=== PATIENT | male | born 1940 | race Caucasian/White ===

== ENCOUNTER → 2016-08-18 | Outpatient (CLI) | payer MEDICARE ==
[~2016-08-18] MED LIST: DULC100C PO; FINA5TAB2 PO; FOLI400T PO; LATA.005%O EACH EYE; LATA0.002 EACH EYE; MAGN400T2 PO; MAGNSOL2 PO; MIRA33504 PO; MULT1TAB85 PO; TAMS0.4C4 PO
[2016-08-18 09:43] LABS: MEAN CELL VOLUME 90.7 FL (80.0-100.0); MEAN CORPUSCULAR HEMOGLOBIN 30.9 PG (27.0-34.0); MEAN CORPUSCULAR HGB CONC 34.1 % (32.0-36.0); PLATELET COUNT 262 TH/MM3 (150-450); RED BLOOD COUNT 4.74 MIL/MM3 (4.50-5.90); REVIEW FLAG FINAL; WHITE BLOOD COUNT 6.4 TH/MM3 (4.0-11.0)
[2016-08-18 09:58] LABS: BICARBONATE 28.1 MEQ/L (21.0-32.0); POTASSIUM 4.5 MEQ/L (3.5-5.1)
--- NOTE | 2016-08-18 15:20 | EKG ---
Date Performed: 08/18/2016 Time Performed: 09:11:31 PTAGE: 75 years EKG: Sinus rhythm WITH FIRST DEGREE AV BLOCK BORDERLINE LEFT AXIS DEVIATION ABNORMAL ECG NO PREVIOUS TRACING DOCTOR: Art Wood Interpretating Date/Time 08/18/2016 15:18:22
== END ==
LOC: CPRE 08:49
PROVIDERS: ATTEND Plastic Surgery
DX: C44.319 Basal cell carcinoma of skin of other parts of face (principal); R94.31 Abnormal electrocardiogram [ECG] [EKG]
CPT/HCPCS: 36415; 80051; 85027; 93005

== ENCOUNTER → 2016-08-19 | Day surgery (SDC) | payer MEDICARE ==
--- NOTE | 2016-08-18 19:43 | MH ---
cc: NBA PENNINGTON M.D. 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 Patient was brought to me for excision and reconstruction. HISTORY This is a 75-year-old white male who recently was referred to me from the dermatology office. He had biopsies on multiple areas on his face on July 23, 2016. The skin on the left side nose ala is positive for melanoma in situ with biopsy positive for the melanoma on the borders. He also has a left cheek lesion biopsy that is nodular basal cell carcinoma and also a left side upper lip lesion that was diagnosed as basal cell nodular carcinoma as well. The patient underwent detailed explanation of the different types of skin cancers and general approach is to do excision. The melanoma was discussed in detail. His lesion is in situ and does not need any lymph node excision. The margins around the melanoma can be approximately between 5 to 10 millimeter range depending on the anatomic on the nose itself and the basal cell with a 6 millimeter margin should be adequate. The basal cell carcinoma can also be subjected to frozen section, at the same time the other surgeries have been continued. The defect on the nose will need to be reconstructed with the simplest technique being a full-thickness skin graft and also the possible options for the different rotation flaps either from forehead or the left cheek were pointed out. The dorsal nasal flap alone may or may not be sufficient for this type and size of defect. The patient is willing to go ahead with the full-thickness skin graft option. Again the melanoma being in situ, removal of cartilage is not indicated. The remaining areas can be directly closed or closed with an advancement local flap, etc. The patient understands the possibility that the skin graft may not take and further reconstructive option may need to be considered including a second skin graft. PAST MEDICAL HISTORY: Negative for any major medical problems. He does have occasional skipped heart beats which are asymptomatic and does not need any active treatment according to his medical numerical control operator. The patient is not diabetic. No coronary artery problems and no history of any chest pain or shortness of breath. No other chronic issues. No major surgeries. CURRENT MEDICATIONS Only vitamins. ALLERGIES: PENICILLIN SOCIAL HISTORY: Negative for smoking. Occasional social alcohol use. No drug abuse. No hepatitis or HIV risk factors. No history of any transfusions. PHYSICAL EXAMINATION: The patient is 6 feet tall and weight is 185 pounds. Examination shows a 75-year-old white male with stable vital signs. GENERAL: The patient is alert, cooperative, fully oriented. He is fully ambulant, emotionally stable. HEAD AND NECK: Clear sclerae. Pupils are equal, reactive to room light. Trachea is midline. No thyromegaly or gross masses noted in the neck. NECK: Neck movements are normal. CHEST: The chest has good expansion with normal breathing, normal heart sounds, normal breath sounds. ABDOMEN: Not examined. EXTREMITIES: Upper and lower extremities are grossly intact. There are scattered skin lesions which are not suspicious involving the head and neck, and on the extremities, mostly age related changes. The local examination of the three areas in question, the left side nose ala area has 8 to 9 millimeter biopsy with some degree of lesion seen towards the superior aspect. The excision will most likely involve the edge of the nostril and may result in asymmetrical reconstruction on the border of the nose. The area on the left cheek just outside the nasolabial fold still has a small visible lesion, biopsy site is healed. There is a similar lesion around the left upper lip as well. The cheek lesion now is the larger one of the two. No palpable lymph nodes under the submandibular area or the left parotid superficial parotid area. 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 PLAN: The plan is to excise all the areas. The melanoma will be sent for permanent section only. The basal cell carcinomas will be subjected to frozen section, local closure by full-thickness skin graft on the nose and direct or advancement closure on the cheek and the lip. signed, not fully reviewed Nba Pennington MD /HARMEET /6:55 PM /7:09 PM RITU
[~2016-08-19] VITALS: Ht 182.9 cm; Wt 84.4 kg
[~2016-08-19] MED LIST changes: +ACETAMINOPHEN/HYDROcodone 325 MG/7.5 MG TAB OG PRN; +ARTIFICIAL TEARS OPTH OINT 3.5 APPLIC/3.5 GM TUBO ONE; +BACITRACIN TOP OINT 15 GM TUBE ONE; +BUPIVACAINE/EPINEPHRINE 0.5% PF 30 ML VIAL ONE; +CLINDAMYCIN 600 MG/NS 100 ML IV SCH; +DO NOT ADM ANY ANTICOAGULANT DRUGS XX PRN; +FAMOTIDINE 20 MG/2 ML VIAL ONE; +HYDROmorphone HCL PF 1 MG/ML VIAL IV PRN; +INSULIN HUMAN REGULAR 1,000 UNITS/10 ML VIAL SQ PRN; +LACTATED RINGER'S 1000 ML IV SCH; -LATA.005%O EACH EYE; +LIDOCAINE 1%/EPINEPHrine 1:100,000 SOLN 30 ML VIAL ONE; +METOPROLOL TARTRATE 25 MG TAB PO PRN; +MIDAZOLAM HCL 2 MG/2 ML VIAL ONE; +MINERAL OIL 10 ML VIAL ONE; +NEOSTIGMINE 3 MG/3 ML SYR IV ONE; +ONDANSETRON HCL 4 MG/2 ML VIAL IV PUSH ONE; +PHENYLEPH/NS 1000 MCG/10 ML SYR IV ONE; +PROPOFOL 200 MG/20 ML AMP IV ONE; +SODIUM CHLORID 0.9% 500 ML IV SCH; +SODIUM CHLORIDE 0.9% INJ 100 ML ONE; +ePHEDrine/NS 25 MG/5 ML SYR IV ONE; +fentaNYL CITRATE 250 MCG/5 ML AMP ONE
[2016-08-19 09:35] VITALS: BP 135/80; PULSE 68; RESP 18; TEMP 98.1; O2SAT 98
[2016-08-19 12:46] VITALS: BP 121/69; PULSE 60; RESP 16; TEMP 98.2; O2SAT 99
--- NOTE | 2016-08-20 13:25 | MP ---
cc: ESTELLA PENNINGTON M.D. DATE OF SURGERY 08/19/2016 PREOPERATIVE DIAGNOSES 1. Biopsy-proven melanoma in situ left side nose. 2. Biopsy-proven basal cell carcinoma left cheek. 3. Biopsy-proven basal cell carcinoma left upper lip. POSTOPERATIVE DIAGNOSES 1. Biopsy-proven melanoma in situ left side nose. 2. Biopsy-proven basal cell carcinoma left cheek. 3. Biopsy-proven basal cell carcinoma left upper lip. SURGEON Dr. Pennington ANESTHESIA General. OPERATION 1. Excision left side nose ala melanoma in situ, approximately 3 cm defect, full-thickness skin graft from the left neck. 2. Excision left cheek basal cell carcinoma, frozen section and direct closure. 3. Excision basal cell carcinoma left upper lip, frozen section and direct closure. INDICATIONS This is a 75-year-old white male with the above-mentioned skin malignancies diagnosed with biopsy at his dermatology office. She was referred to id for further management. He underwent detailed explanation of the excision of the melanoma with between 5-10 mm margin and the basal cell with 4-6 mm margin on the short sides. The frozen section for the basal cell cancer was explained. The melanoma needs permanent section only. The general risks and complications were explained including the possibility of skin graft failure and possible need for future reconstruction that may be needed. He is willing to go ahead with the surgery. PROCEDURE The patient was brought to the operating room, was given supine position. Prep and drape was done. IV antibiotic had been given. The time-out was called and completed. The markings were performed on all the areas. Local anesthetic was injected and the lesions were excised down to the subcuticular tissue, suture marked superiorly. The two basal cells were sent for frozen section. The hemostasis was completed. A full-thickness skin graft was then harvested from the left posterior neck following the natural skin folds and it was defatted, adjusted for thickness to the defect on the nose and was sutured in place with 6-0 Prolene interrupted sutures. The donor site and the defects on the lip and the nose were directly closed. There was some distortion and flattening of the left cheek and change in the overall symmetry due to the [id number] excision; however, it was possible to maintain the angle of the lip without distortion by tilting the lower part of the excision vertical to the vermilion border. The frozen section report issued in the meantime indicated clear margins on both basal cell carcinomas. There was no clear identification of any residual tumor. All the areas were cleaned. A [id number] bolster dressing was applied for the nose, skin graft and the other areas were Steri-Stripped. The patient remained stable. Intraoperative blood loss less than 5-10 cc. No complications. signed, not fully reviewed MD VERONICA Mckeon/TIMUR /1:32 PM /1:06 PM RITU
== END | disposition home or self-care (01) ==
LOC: HSDC 08:38
PROVIDERS: ATTEND Plastic Surgery
DX: D03.39 Melanoma in situ of other parts of face (principal); C44.319 Basal cell carcinoma of skin of other parts of face; C44.01 Basal cell carcinoma of skin of lip
CPT/HCPCS: 00300; 11641; 11643; 15240; 88305; 88331; 88341; 88342; J2250; J2370; J2405; J2710; J3010; J7120

== ENCOUNTER 2016-09-08 05:38 | Emergency (ER) | payer MEDICARE ==
[~2016-09-08] VITALS: Ht 182.9 cm; Wt 85.0 kg
[~2016-09-08 05:38] MED LIST changes: -ACETAMINOPHEN/HYDROcodone 325 MG/7.5 MG TAB OG PRN; -ARTIFICIAL TEARS OPTH OINT 3.5 APPLIC/3.5 GM TUBO ONE; -BACITRACIN TOP OINT 15 GM TUBE ONE; -BUPIVACAINE/EPINEPHRINE 0.5% PF 30 ML VIAL ONE; -CLINDAMYCIN 600 MG/NS 100 ML IV SCH; -DO NOT ADM ANY ANTICOAGULANT DRUGS XX PRN; -DULC100C PO; -FAMOTIDINE 20 MG/2 ML VIAL ONE; -FOLI400T PO; -HYDROmorphone HCL PF 1 MG/ML VIAL IV PRN; -INSULIN HUMAN REGULAR 1,000 UNITS/10 ML VIAL SQ PRN; -LACTATED RINGER'S 1000 ML IV SCH; -LIDOCAINE 1%/EPINEPHrine 1:100,000 SOLN 30 ML VIAL ONE; -MAGN400T2 PO; -MAGNSOL2 PO; -METOPROLOL TARTRATE 25 MG TAB PO PRN; -MIDAZOLAM HCL 2 MG/2 ML VIAL ONE; -MINERAL OIL 10 ML VIAL ONE; -MIRA33504 PO; -MULT1TAB85 PO; -NEOSTIGMINE 3 MG/3 ML SYR IV ONE; -ONDANSETRON HCL 4 MG/2 ML VIAL IV PUSH ONE; -PHENYLEPH/NS 1000 MCG/10 ML SYR IV ONE; -PROPOFOL 200 MG/20 ML AMP IV ONE; -SODIUM CHLORID 0.9% 500 ML IV SCH; -SODIUM CHLORIDE 0.9% INJ 100 ML ONE; -ePHEDrine/NS 25 MG/5 ML SYR IV ONE; -fentaNYL CITRATE 250 MCG/5 ML AMP ONE
[2016-09-08 05:39] VITALS: BP 160/83; PULSE 76; RESP 18; TEMP 97.9; O2SAT 100
[2016-09-08] MEDS ORDERED: MAGN400T2 PO (05:43)
[2016-09-08] MEDS ORDERED: FOLI400T PO (05:43)
[2016-09-08] MEDS ORDERED: DULC100C PO (05:44)
[2016-09-08] MEDS ORDERED: MULT1TAB85 PO (05:44)
[2016-09-08] MEDS ORDERED: SODIUM CHLORID 0.9% 500 ML INJ 500 ML IV ONE (05:45)
[2016-09-08 05:48] VITALS: O2SAT 99
--- NOTE | 2016-09-08 06:06 | PD ---
HPI Chief Complaint: Syncope/Near-Syncope Time Seen by Provider: 05:44 Travel History International Travel<30 days: No Contact w/Intl Traveler<30days: No Traveled to known affect area: No History of Present Illness HPI The patient is a 75 year old male who presents to the [facility] emergency department with a history of reportedly abdominal pain that began and awoke him from sleep at 3:30 AM. The patient reports that he has a history of constipation, however it is been worse over the last week. He reports that on Wednesday moved his bowels and it was a small bowel movement that was hard. He reports that yesterday he took a Dulcolax stool softener. He reports his recent history has been complicated by approximately 3 weeks ago having a melanoma removed from his face. He reports that he was given pain medication prescription, however he is only taken 2 pills due to his history of constipation. He denies having any vomiting. He reports that he was sitting on the toilet prior to arrival with lower abdominal pain that was sharp and cramping in character. He then began to have diaphoresis and a sensation of lightheadedness. Ambulance services were then called. The patient reports that the symptoms have completely resolved. He denies having any chest pain or shortness of breath. The patient denies any recent fevers, cough, congestion, neck pain, diarrhea, new urinary symptoms, or neurologic symptoms. [facility] Past Medical History Narrative Medical The patient's past medical history is significant for a melanoma resection from his nose, history of constipation, history of benign prostatic hypertrophy, history of glaucoma, history of a cardiac arrhythmia, acid reflux. Heart Rhythm Problems: Yes (palpitations occasionally) Cardiac Catheterization: No Cardiovascular Problems: Yes (afib) High Cholesterol: No Congestive Heart Failure: No Diabetes: No Diminished Hearing: No Endocrine: No Gastrointestinal Disorders: Yes (gerd) Glaucoma: Yes (early) Genitourinary: Yes Hepatitis: No Hiatal Hernia: No Immune Disorder: No Musculoskeletal: No Neurologic: No Psychiatric: No Reproductive: No Respiratory: No Immunizations Current: Yes Thyroid Disease: No Tetanus Vaccination: < 5 Years Past Surgical History Narrative Surgical The patient's past surgical history is significant for a right inguinal hernia repair, mastectomy, colonoscopy last done 2 months ago that was reportedly unremarkable, melanoma removal from his face. Abdominal Surgery: Yes (hernia) AICD: No Coronary Artery Bypass Graft: No Joint Replacement: No Oral Surgery: Yes (mouth surgeries) Pacemaker: No Other Surgery: Yes (colonscopy 2 months ago ) Family History Family Myocardial Infarction: Yes (BROTHER) Social History Alcohol Use: Yes (social) Tobacco Use: No Substance Use: No Allergies-Medications (Allergen,Severity, Reaction): Coded Allergies: Penicillin (Verified Allergy, Severe, Rash, 09/08/16) Reported Meds & Prescriptions Reported Meds & Active Scripts Active Miralax Powder (Polyethylene Glycol 3350 Powder) 17 Gm Powd 17 Gm PO DAILY Mix and dissolve one measuring cap-ful (17 grams) in water or juice. Magnesium Citrate Liq (Magnesium Citrate) 300 Ml Liq 300 Ml PO DIRECTED Reported Dulcolax Stool Softener (Docusate Sodium) 100 Mg Cap 100 Mg PO BID Multivitamin Men (Multiple Vitamins W/ Minerals) 1 Tab Tab 1 Tab PO DAILY Magnesium Oxide 400 Mg Tab 400 Mg PO DIRECTED Folic Acid 400 Mcg Tab 400 Mcg PO DAILY Tamsulosin (Tamsulosin HCl) 0.4 Mg Cap 0.4 Mg PO HS Finasteride 5 Mg Tab 5 Mg PO DAILY Do not crush. Latanoprost Opth Drops (Latanoprost) 0.005% Drops 1 Drop EACH EYE HS Refrigerate until opened. Review of Systems Except as stated in HPI: all other systems reviewed are Neg General / Constitutional: No: Fever Eyes: No: Visual changes HENT: Positive: Lightheadedness, No: Headaches, Neck Pain Cardiovascular: Positive: Diaphoresis, No: Chest Pain or Discomfort, Dyspnea on exertion Respiratory: No: Cough, Shortness of Breath Gastrointestinal: Positive: Abdominal Pain, Constipation, Changes in Bowel Habits, No: Nausea, Vomiting, Diarrhea, Hematemesis, Hematochezia, Indigestion , Loss of Appetite Genitourinary: No: Dysuria, Flank Pain Musculoskeletal: No: Pain Skin: No Rash Neurologic: Positive: Dizziness, No: Weakness, Focal Abnormalities, Change in Mentation, Slurred Speech, Sensory Disturbance Psychiatric: No: Depression Endocrine: No: Polydipsia Hematologic/Lymphatic: No: Easy Bruising Physical Exam Narrative General: The patient is a well-developed well-nourished male in no acute distress. Head and Neck exam: Head is normocephalic atraumatic. Eyes: EOMI, pupils are equal round and reactive to light. Nose: Midline septum with pink mucous membranes Mouth: Dentition unremarkable. Moist mucus membranes. Posterior oropharynx is not erythematous. No tonsillar hypertrophy. Uvula midline. Airway patent. Neck: No palpable lymphadenopathy. No nuchal rigidity. No thyromegaly. Cardiovascular: Regular rate and rhythm without murmurs, gallops, or rubs. No pulse deficit to the extremities on simultaneous auscultation and palpation of his radial artery. Lungs: Clear to auscultation bilaterally. No wheezes, rhonchi, or rales. Abdomen: Soft, without tenderness to palpation in all 4 quadrants of the abdomen. No guarding, rebound, or rigidity. Normal bowel sounds are audible. No tenderness on palpation of McBurney's point. Negative Fortune's sign. The patient reports that the abdominal pain has completely resolved prior to arrival. Extremities: No clubbing, cyanosis, or edema. 2+ pulses in all 4 extremities. No calf tenderness on palpation. Back: No spinous process tenderness to palpation. No costovertebral angle tenderness to palpation. Neurologic Exam: Grossly nonfocal. Skin Exam: No rash noted. Intact skin that is warm and dry. RECTAL EXAM: No hemorrhoids or masses are noted. No evidence of anal fissure. The patient has a significant amount of stool present in the rectal vault. Some of this was easily removed on exam. Stool is brown in color. Hemoccult negative. Data Data Last Documented VS Vital Signs Date Time Temp Pulse Resp B/P Pulse Ox O2 Delivery O2 Flow Rate FiO2 09/08/16 12:24 70 18 129/91 98 09/08/16 07:09 Room Air 09/08/16 05:39 97.9 Orders Electrocardiogram (09/08/16 05:44) Complete Blood Count With Diff (09/08/16 05:44) Comprehensive Metabolic Panel (09/08/16 05:44) Ckmb (Isoenzyme) Profile (09/08/16 05:44) Troponin I (09/08/16 05:44) B-Type Natriuretic Peptide (09/08/16 05:44) Lipase (09/08/16 05:44) Chest, Single Ap (09/08/16 05:44) Abdomen, Flat & Upright (09/08/16 05:44) Iv Access Insert/Monitor (09/08/16 05:44) Ecg Monitoring (09/08/16 05:44) Oximetry (09/08/16 05:44) Sodium Chlorid 0.9% 500 Ml Inj (Ns 500 M (09/08/16 05:45) Orthostatic Vital Signs (09/08/16 06:06) Ct Abd/Pel W Iv Contrast(Rout) (09/08/16 06:37) Iohexol 350 Inj (Omnipaque 350 Inj) (09/08/16 07:26) Glycerin Adult Supp (Glycerin Adult Supp (09/08/16 07:45) Magnesium Citrate Liq (Citroma Liq) (09/08/16 07:45) Labs Laboratory Tests Test 09/08/16 05:45 White Blood Count 7.1 TH/MM3 Red Blood Count 4.47 MIL/MM3 Hemoglobin 13.7 GM/DL Hematocrit 40.7 % Mean Corpuscular Volume 90.9 FL Mean Corpuscular Hemoglobin 30.6 PG Mean Corpuscular Hemoglobin 33.7 % Concent Red Cell Distribution Width 12.7 % Platelet Count 235 TH/MM3 Mean Platelet Volume 8.1 FL Neutrophils (%) (Auto) 73.8 % Lymphocytes (%) (Auto) 18.0 % Monocytes (%) (Auto) 5.0 % Eosinophils (%) (Auto) 2.4 % Basophils (%) (Auto) 0.8 % Neutrophils # (Auto) 5.3 TH/MM3 Lymphocytes # (Auto) 1.3 TH/MM3 Monocytes # (Auto) 0.4 TH/MM3 Eosinophils # (Auto) 0.2 TH/MM3 Basophils # (Auto) 0.1 TH/MM3 CBC Comment DIFF FINAL Differential Comment Sodium Level 141 MEQ/L Potassium Level 3.7 MEQ/L Chloride Level 106 MEQ/L Carbon Dioxide Level 26.1 MEQ/L Anion Gap 9 MEQ/L Blood Urea Nitrogen 22 MG/DL Creatinine 1.15 MG/DL Estimat Glomerular Filtration 62 ML/MIN Rate Random Glucose 130 MG/DL Calcium Level 8.6 MG/DL Total Bilirubin 0.4 MG/DL Aspartate Amino Transf 13 U/L (AST/SGOT) Alanine Aminotransferase 22 U/L (ALT/SGPT) Alkaline Phosphatase 64 U/L Total Creatine Kinase 77 U/L Troponin I LESS THAN 0.02 NG/ML B-Type Natriuretic Peptide 23 PG/ML Total Protein 6.7 GM/DL Albumin 3.8 GM/DL Lipase 136 U/L MDM Medical Decision Making Medical Screen Exam Complete: Yes Emergency Medical Condition: Yes Medical Record Reviewed: Yes Interpretation(s) Last Impressions Abdomen/Pelvis CT 09/08/1637 Signed Impressions: Service Date/Time: Thursday, September 08, 2016 07:12 - CONCLUSION: Extensive amount of stool particularly in the rectum, otherwise unremarkable. Maame Quinones MD Chest X-Ray 09/08/1644 Signed Impressions: Service Date/Time: Thursday, September 08, 2016 06:04 - CONCLUSION: 1. No focal consolidation or effusion. No pneumothorax. Joel Felton MD Abdomen X-Ray 09/08/16543 Signed Impressions: Service Date/Time: Thursday, September 08, 2016 06:06 - CONCLUSION: 1. Mild constipation. Mild scoliosis. No obstruction or free air. Joel Felton MD Differential Diagnosis Vasovagal near syncope, versus cardiac arrhythmia, versus acute coronary syndrome, versus bowel obstruction, versus constipation, versus orthostasis Narrative Course During the course of the patients emergency department visit, the patients history, examination, and differential diagnosis were reviewed with the patient. The patient had IV access obtained and blood work sent for analysis. The patient was placed on a school bus monitor with oximetry and blood pressure monitoring. An EKG was done on arrival. The patient's EKG shows a sinus rhythm heart rate of 62, borderline left axis deviation, no acute ST segment elevation, T waves are inverted in lead 3, V1. A chest x-ray has been ordered. An abdominal flat and upright x-ray has been ordered. The patient was provided normal saline a 500 mL bolus 1. The patients laboratory studies were reviewed and remarkable for a CBC with a right count of 7.1, hemoglobin 13.7, platelets 235 with 73.8 neutrophils, CMP is remarkable for a BUN of 22, GFR 62, glucose 1:30, AST 13, initial set of cardiac enzymes are negative, BNP is 23, lipase 136. Radiology studies were reviewed and remarkable for a chest x-ray that shows no focal consolidation or effusion, no pneumothorax. Abdominal flat and upright reveals mild constipation, mild scoliosis, no obstruction or free air. The patient's case was checked out to the oncoming emergency physician to disposition based on the conclusion of the patient's workup. Diagnosis Primary Impression: Constipation Qualified Code: K59.00 - Constipation, unspecified constipation type Additional Impression: Vasovagal near syncope Scripts Polyethylene Glycol 3350 Powder (Miralax Powder)17 Gm Powd17 Gm PO DAILY #1 BOTTLE Mix and dissolve one measuring cap-ful (17 grams) in water or juice. Prov:Leonard Springer MD 09/08/16 Magnesium Citrate Liq 300 Ml [id number] Ml PO DIRECTED #1 BOTTLE Prov:Leonard Springer MD 09/08/16 Genevieve Lorenzo MD Sep 08, 2016 06:06
[2016-09-08 06:10] VITALS: BP_SYST 126; BP_SYST 138; BP_DIAS 71; BP_DIAS 78; BP_DIAS 84; RESP 16; RESP 17
[2016-09-08 06:16] LABS: AUTOMATED NEUTROPHIL # 5.3 TH/MM3 (1.8-7.7); BASOPHIL # 0.1 TH/MM3 (0-0.2); BASOPHIL % 0.8 % (0.0-2.0); EOSINOPHIL # 0.2 TH/MM3 (0-0.4); EOSINOPHIL % 2.4 % (0.0-4.0); HEMATOCRIT 40.7 % (39.0-51.0); HEMO FLAGS DIFF FINAL; LYMPHOCYTE # 1.3 TH/MM3 (1.0-4.8); MEAN CELL VOLUME 90.9 FL (80.0-100.0); MEAN CORPUSCULAR HEMOGLOBIN 30.6 PG (27.0-34.0); MEAN CORPUSCULAR HGB CONC 33.7 % (32.0-36.0); NEUT % 73.8 % (16.0-70.0); PLATELET COUNT 235 TH/MM3 (150-450); RED BLOOD COUNT 4.47 MIL/MM3 (4.50-5.90); RED CELL DISTRIBUTION WIDTH 12.7 % (11.6-17.2); WHITE BLOOD COUNT 7.1 TH/MM3 (4.0-11.0)
[2016-09-08 06:41] LABS: ALT (GPT) 22 U/L (12-78); ANION GAP 9 MEQ/L (5-15); AST (GOT) 13 U/L (15-37); BICARBONATE 26.1 MEQ/L (21.0-32.0); BLOOD UREA NITROGEN 22 MG/DL (7-18); CHLORIDE 106 MEQ/L (98-107); GLOMERULAR FILTRATION RATE 62 ML/MIN (>89); POTASSIUM 3.7 MEQ/L (3.5-5.1); SODIUM (NA) 141 MEQ/L (136-145)
--- NOTE | 2016-09-08 06:44 | RADRPT ---
EXAM DATE/TIME: 09/08/2016 06:04 [facility] COMPARISON: CHEST SINGLE AP, August 04, 2014, 20:36. INDICATIONS : Cough. MEDICAL HISTORY : None. SURGICAL HISTORY : None. ENCOUNTER: Initial ACUITY: 1 day PAIN SCORE: 0/10 LOCATION: Bilateral chest FINDINGS: A single view of the chest demonstrates the lungs to be symmetrically aerated without evidence of mas s, infiltrate or effusion. The cardiomediastinal contours are unremarkable. Osseous structures are intact. CONCLUSION: 1. No focal consolidation or effusion. No pneumothorax. Joel Felton MD on September 08, 2016 at 6:41 Board Certified Radiologist. This report was verified electronically.
[2016-09-08 06:46] LABS: ALKALINE PHOSPHATASE 64 U/L (45-117); TOTAL BILIRUBIN ADULT 0.4 MG/DL (0.2-1.0)
--- NOTE | 2016-09-08 06:47 | RADRPT ---
EXAM DATE/TIME: 09/08/2016 06:06 [facility] COMPARISON: No previous studies available for comparison. INDICATIONS : Abdominal discomfort. MEDICAL HISTORY : None. SURGICAL HISTORY : None. ENCOUNTER: Initial ACUITY: 2 days PAIN SCORE: 8/10 LOCATION: abdomen. FINDINGS: Supine and upright views of the abdomen were performed. The abdominal bowel gas pattern is normal. There is mild constipation. No bowel obstruction. No free air. There is a mild thoracolumbar scoliosi s. CONCLUSION: 1. Mild constipation. Mild scoliosis. No obstruction or free air. Joel Felton MD on September 08, 2016 at 6:43 Board Certified Radiologist. This report was verified electronically.
[2016-09-08 06:53] LABS: CREATINE KINASE 77 U/L (39-308)
[2016-09-08 07:09] VITALS: BP 154/80; PULSE 70; RESP 18; O2SAT 100
[2016-09-08] MEDS ORDERED: IOHEXOL 350 MG/ML 10 ML VIAL (for RAD DIAG) IV ONE (07:26)
--- NOTE | 2016-09-08 07:31 | PD ---
Data Data Last Documented VS Vital Signs Date Time Temp Pulse Resp B/P Pulse Ox O2 Delivery O2 Flow Rate FiO2 09/08/16 07:09 70 18 154/80 100 Room Air 09/08/16 05:39 97.9 Orders Electrocardiogram (09/08/16 05:44) Complete Blood Count With Diff (09/08/16 05:44) Comprehensive Metabolic Panel (09/08/16 05:44) Ckmb (Isoenzyme) Profile (09/08/16 05:44) Troponin I (09/08/16 05:44) B-Type Natriuretic Peptide (09/08/16 05:44) Lipase (09/08/16 05:44) Urinalysis - C+S If Indicated (09/08/16 05:44) Chest, Single Ap (09/08/16 05:44) Abdomen, Flat & Upright (09/08/16 05:44) Iv Access Insert/Monitor (09/08/16 05:44) Ecg Monitoring (09/08/16 05:44) Oximetry (09/08/16 05:44) Sodium Chlorid 0.9% 500 Ml Inj (Ns 500 M (09/08/16 05:45) Orthostatic Vital Signs (09/08/16 06:06) Ct Abd/Pel W Iv Contrast(Rout) (09/08/16 06:37) Iohexol 350 Inj (Omnipaque 350 Inj) (09/08/16 07:26) Glycerin Adult Supp (Glycerin Adult Supp (09/08/16 07:45) Magnesium Citrate Liq (Citroma Liq) (09/08/16 07:45) Labs Laboratory Tests Test 09/08/16 05:45 White Blood Count 7.1 TH/MM3 Red Blood Count 4.47 MIL/MM3 Hemoglobin 13.7 GM/DL Hematocrit 40.7 % Mean Corpuscular Volume 90.9 FL Mean Corpuscular Hemoglobin 30.6 PG Mean Corpuscular Hemoglobin 33.7 % Concent Red Cell Distribution Width 12.7 % Platelet Count 235 TH/MM3 Mean Platelet Volume 8.1 FL Neutrophils (%) (Auto) 73.8 % Lymphocytes (%) (Auto) 18.0 % Monocytes (%) (Auto) 5.0 % Eosinophils (%) (Auto) 2.4 % Basophils (%) (Auto) 0.8 % Neutrophils # (Auto) 5.3 TH/MM3 Lymphocytes # (Auto) 1.3 TH/MM3 Monocytes # (Auto) 0.4 TH/MM3 Eosinophils # (Auto) 0.2 TH/MM3 Basophils # (Auto) 0.1 TH/MM3 CBC Comment DIFF FINAL Differential Comment Sodium Level 141 MEQ/L Potassium Level 3.7 MEQ/L Chloride Level 106 MEQ/L Carbon Dioxide Level 26.1 MEQ/L Anion Gap 9 MEQ/L Blood Urea Nitrogen 22 MG/DL Creatinine 1.15 MG/DL Estimat Glomerular Filtration 62 ML/MIN Rate Random Glucose 130 MG/DL Calcium Level 8.6 MG/DL Total Bilirubin 0.4 MG/DL Aspartate Amino Transf 13 U/L (AST/SGOT) Alanine Aminotransferase 22 U/L (ALT/SGPT) Alkaline Phosphatase 64 U/L Total Creatine Kinase 77 U/L Troponin I LESS THAN 0.02 NG/ML B-Type Natriuretic Peptide 23 PG/ML Total Protein 6.7 GM/DL Albumin 3.8 GM/DL Lipase 136 U/L MDM Supervised Visit with SANDRA: No Narrative Course Assume care of patient from Dr. Lorenzo. 75-year-old man with a history of constipation, BPH, glaucoma, acid reflux, cardiac arrhythmias, and recent melanoma resection presents for worsening constipation symptoms and abdominal pain that woke him up from sleep at 3:30 AM associated with the tonsil to vasovagal syncopal episode while on the commode. Dr. Lorenzo disimpacted him. X-ray showed moderate constipation and he has a CT scan pending. Labs are unremarkable. Symptoms likely related to constipation vasovagal episode. CT shows extensive stool throughout the colon particularly in the rectum, treated with glycerin suppository, magnesium citrate, MiraLAX, outpatient follow-up. Diagnosis Primary Impression: Constipation Qualified Code: K59.00 - Constipation, unspecified constipation type Additional Impression: Vasovagal near syncope Additional Instruction: If you've not had a substantial bowel movement by tomorrow take another dose of magnesium citrate. Start MiraLAX daily and titrate to regular bowel movements. Follow up with her primary doctor in next 2-4 days. Drink plenty of water. Return to the emergency department for any worsening abdominal pain, recurrent fainting spells, or any other new or worsening symptoms. Med/Other Pt SpecificInfo: Prescription(s) given Scripts Polyethylene Glycol 3350 Powder (Miralax Powder)17 Gm Powd17 Gm PO DAILY #1 BOTTLE Mix and dissolve one measuring cap-ful (17 grams) in water or juice. Prov:Leonard Springer MD 09/08/16 Magnesium Citrate Liq 300 Ml Oak744 Ml PO DIRECTED #1 BOTTLE Prov:Leonard Springer MD 09/08/16 Disposition: 01 DISCHARGE HOME Condition: Stable Leonard Springer MD Sep 08, 2016 07:31
--- NOTE | 2016-09-08 07:36 | RADRPT ---
EXAM DATE/TIME: 09/08/2016 07:12 [place] COMPARISON: No previous studies available for comparison. INDICATIONS : Lower abdominal pain. Episode of diaphoresis. Constipation x 1 week. IV CONTRAST: 85 cc Omnipaque 350 (iohexol) IV ORAL CONTRAST: No oral contrast ingested. RADIATION DOSE: 9.96 CTDIvol (mGy) MEDICAL HISTORY : None SURGICAL HISTORY : Inguinal hernia repair. ENCOUNTER: Initial ACUITY: 1 week PAIN SCALE: 1/10 LOCATION: Bilateral lower quadrant TECHNIQUE: Volumetric scanning of the abdomen and pelvis was performed. Using automated exposure control and ad justment of the mA and/or kV according to patient size, radiation dose was kept as low as reasonably achievable to obtain optimal diagnostic quality images. FINDINGS: CT Abdomen: The liver, spleen, pancreas, left kidney, adrenals are unremarkable. There is no evidence for any appreciable pathological adenopathy, free fluid, or bowel obstruction. There may be a small sliding hiatal hernia. There is a tiny 3-4 mm pleural-based nodule in the right middle lobe laterall y most likely benign. There is either an old fracture of L1 transverse process on the right are not f used on a congenital basis. There are 2 cysts in the right kidney the larger one measures 2.7 cm in s ize. CT pelvis: There is no evidence for mass, abscess formation, or any significant adenopathy within the pelvis. The prostate gland is inhomogeneous and measures 3.8 x 5.1 cm in AP and transverse diameters and nonspecific. There is extensive amount of stool throughout the colon and rectum. CONCLUSION: Extensive amount of stool particularly in the rectum, otherwise unremarkable. Maame Quinones MD on September 08, 2016 at 7:29 Board Certified Radiologist. This report was verified electronically.
[2016-09-08] MEDS ORDERED: MAGNSOL2 PO (07:44)
[2016-09-08] MEDS ORDERED: MIRA33504 PO (07:44)
[2016-09-08] MEDS ORDERED: MAGNESIUM CITRATE SOLN 300 ML BTL PO ONE (07:45)
[2016-09-08] MEDS ORDERED: GLYCERIN ADULT 2 GM SUPP RECTAL ONE (07:45)
[2016-09-08 12:24] VITALS: BP 129/91
--- NOTE | 2016-09-08 21:58 | EKG ---
Date Performed: 09/08/2016 Time Performed: 05:46:33 PTAGE: 75 years EKG: Sinus rhythm WITH FIRST DEGREE AV BLOCK BORDERLINE LEFT AXIS DEVIATION Since previous tracing, no significant ernestina nge noted ABNORMAL ECG PREVIOUS TRACING : 08/18/2016 09.11 DOCTOR: Annabelle Navarro Interpretating Date/Time 09/08/2016 21:57:43
== END 2016-09-08 11:45 | disposition home or self-care (01) ==
LOC: NEPC 05:38
DX: K59.00 Constipation, unspecified (principal); R55 Syncope and collapse; I48.91 Unspecified atrial fibrillation; R94.31 Abnormal electrocardiogram [ECG] [EKG]
CPT/HCPCS: 71010; 74020; 74177; 80053; 82550; 83690; 83880; 84484; 85025; 93005; 99285; J7040; Q9967

== ENCOUNTER 2017-09-25 09:10 | Emergency (ER) | payer MEDICARE ==
[~2017-09-25] VITALS: Ht 182.9 cm; Wt 86.0 kg
[~2017-09-25 09:10] MED LIST changes: +DULC100C PO; +FOLI400T PO; +MAGN400T2 PO; +MAGNSOL2 PO; +MIRA33504 PO; +MULT1TAB85 PO
[2017-09-25 09:16] VITALS: BP 103/63; PULSE 96; RESP 16; TEMP 97.8; O2SAT 98
[2017-09-25] MEDS ORDERED: FINA5TAB2 (09:25)
--- NOTE | 2017-09-25 10:24 | PD ---
HPI Chief Complaint: Headache Time Seen by Provider: 10:05 Travel History International Travel<30 days: No Contact w/Intl Traveler<30days: No Traveled to known affect area: No History of Present Illness HPI This patient complains of headache and diffuse body aches. Duration is 2 days. Severity is moderate. His headache was severe earlier but at this time has mostly resolved and he rates it at this time as a 2 out of 10. No injury. Takes no blood thinners. He did take a temperature yesterday that was 100.4. No productive cough or urinary complaints. No vomiting or diarrhea. No alleviating factors. no exacerbating factors. He has had some nasal and facial congestion. PFSH Past Medical History Heart Rhythm Problems: Yes (palpitations occasionally) Cardiac Catheterization: No Cardiovascular Problems: Yes (afib) High Cholesterol: No Congestive Heart Failure: No Diabetes: No Diminished Hearing: No Endocrine: No Gastrointestinal Disorders: Yes (gerd) Glaucoma: Yes (early) Genitourinary: Yes Hepatitis: No Hiatal Hernia: No Heparin Induced Thrombocytopen: No Hypertension: No Immune Disorder: No Medical other: No Musculoskeletal: No Neurologic: No Psychiatric: No Reproductive: No Respiratory: No Immunizations Current: Yes Thyroid Disease: No Past Surgical History Abdominal Surgery: Yes (hernia) AICD: No Coronary Artery Bypass Graft: No Joint Replacement: No Oral Surgery: Yes (mouth surgeries) Pacemaker: No Other Surgery: Yes (colonscopy 2 months ago ) Family History Family Myocardial Infarction: Yes (BROTHER) Social History Alcohol Use: Yes (social) Tobacco Use: No Substance Use: No Allergies-Medications (Allergen,Severity, Reaction): Coded Allergies: penicillin G (Unverified Allergy, Severe, Rash, 09/25/17) Reported Meds & Prescriptions Reported Meds & Active Scripts Active Reported Finasteride 5 Mg Tab 5 Mg DAILY Do not crush. Magnesium Oxide 400 Mg Tab 400 Mg PO DIRECTED Folic Acid 400 Mcg Tab 400 Mcg PO DAILY Tamsulosin (Tamsulosin HCl) 0.4 Mg Cap 0.4 Mg PO HS Latanoprost Opth Drops (Latanoprost) 0.005% Drops 1 Drop EACH EYE HS Refrigerate until opened. Review of Systems General / Constitutional: No: Fever Eyes: No: Visual changes HENT: Positive: Headaches, Rhinorrhea, Congestion Cardiovascular: No: Chest Pain or Discomfort Respiratory: No: Shortness of Breath Gastrointestinal: No: Abdominal Pain Genitourinary: No: Dysuria Musculoskeletal: Positive: Myalgias, No: Pain Skin: No Rash Neurologic: Positive: Headache, No: Weakness Psychiatric: No: Depression Endocrine: No: Polydipsia Hematologic/Lymphatic: No: Easy Bruising Physical Exam Narrative GENERAL: Well-nourished, well-developed patient in no apparent distress. SKIN: Focused skin assessment reveals no rash and nodules. Skin is Warm and dry. HEAD: Atraumatic. Normocephalic. EYES: Pupils equal and round. No scleral icterus. No injection or drainage. ENT: No nasal bleeding or discharge. Mucous membranes pink and moist. NECK: Trachea midline. No JVD. Supple with full range of motion. No meningeal signs CARDIOVASCULAR: Regular rate and rhythm. No murmur appreciated. RESPIRATORY: No accessory muscle use. Clear to auscultation. Breath sounds equal bilaterally. GASTROINTESTINAL: Abdomen soft, non-tender, nondistended. Hepatic and splenic margins not palpable. MUSCULOSKELETAL: No obvious deformities. No clubbing. No cyanosis. No edema. NEUROLOGICAL: Awake and alert. No obvious cranial nerve deficits. Motor grossly within normal limits. Normal speech. PSYCHIATRIC: Appropriate mood and affect; insight and judgment normal. Data Data Last Documented VS Vital Signs Date Time Temp Pulse Resp B/P (MAP) Pulse Ox O2 Delivery O2 Flow Rate FiO2 09/25/17 09:20 16 98 Room Air 09/25/17 09:16 97.8 96 103/63 (76) Orders Orders Iv Access Insert/Monitor (09/25/17 10:18) Complete Blood Count With Diff (09/25/17 10:18) Basic Metabolic Panel (Bmp) (09/25/17 10:18) Urinalysis - C+S If Indicated (09/25/17 10:18) Chest, Single Ap (09/25/17 ) Acetamin-Hydrocod 325-5 Mg ([place] 5-325 (09/25/17 10:30) Influenzae A/B Antigen (09/25/17 10:25) Labs Laboratory Tests Test 09/25/17 10:25 09/25/17 10:40 White Blood Count 3.2 TH/MM3 Red Blood Count 4.49 MIL/MM3 Hemoglobin 13.8 GM/DL Hematocrit 40.7 % Mean Corpuscular Volume 90.5 FL Mean Corpuscular Hemoglobin 30.7 PG Mean Corpuscular Hemoglobin Concent 33.9 % Red Cell Distribution Width 12.1 % Platelet Count 191 TH/MM3 Mean Platelet Volume 7.1 FL Neutrophils (%) (Auto) 81.9 % Lymphocytes (%) (Auto) 11.3 % Monocytes (%) (Auto) 5.5 % Eosinophils (%) (Auto) 0.0 % Basophils (%) (Auto) 1.3 % Neutrophils # (Auto) 2.6 TH/MM3 Lymphocytes # (Auto) 0.4 TH/MM3 Monocytes # (Auto) 0.2 TH/MM3 Eosinophils # (Auto) 0.0 TH/MM3 Basophils # (Auto) 0.0 TH/MM3 CBC Comment DIFF FINAL Differential Comment Blood Urea Nitrogen 14 MG/DL Creatinine 1.20 MG/DL Random Glucose 96 MG/DL Calcium Level 8.5 MG/DL Sodium Level 135 MEQ/L Potassium Level 4.5 MEQ/L Chloride Level 104 MEQ/L Carbon Dioxide Level 26.3 MEQ/L Anion Gap 5 MEQ/L Estimat Glomerular Filtration Rate 59 ML/MIN Urine Color YELLOW Urine Turbidity CLEAR Urine pH 7.0 Urine Specific [place] 1.010 Urine Protein NEG mg/dL Urine Glucose (UA) NEG mg/dL Urine Ketones NEG mg/dL Urine Occult Blood NEG Urine Nitrite NEG Urine Bilirubin NEG Urine Urobilinogen 1.0 MG/DL Urine Leukocyte Esterase NEG Urine WBC 0-2 /hpf Urine Squamous Epithelial Cells 0-1 /hpf Urine Mucus RARE /lpf Microscopic Urinalysis Comment CULT NOT INDICATED MDM Medical Decision Making Medical Screen Exam Complete: Yes Emergency Medical Condition: Yes Medical Record Reviewed: Yes Differential Diagnosis Flu syndrome, UTI, pneumonia Narrative Course I have reviewed the patient's electronic medical record. IV placed and labs sent I reviewed his chest x-ray which is normal Urinalysis is clean CBC and metabolic studies are normal Patient's exam is normal. He reports low-grade fever but none here. He has no meningeal signs. I do not think he needs imaging of his brain as his headache is almost gone. Influenza swab is negative Presentation seems most consistent with an acute viral syndrome Diagnosis Primary Impression: Myalgia Additional Impressions: Fever Qualified Codes: R50.9 - Fever, unspecified Headache Qualified Codes: R51 - Headache Additional Instructions: The patient was advised to follow up with their physician and return if they worsen. Med/Other Pt SpecificInfo: Other Disposition: 01 DISCHARGE HOME Condition: Stable Kulwinder Dumont MD Sep 25, 2017 10:24
[2017-09-25] MEDS ORDERED: ACETAMINOPHEN/HYDROcodone 325 MG/5 MG TAB PO ONE (10:30)
[2017-09-25 10:40] LABS: AUTOMATED NEUTROPHIL # 2.6 TH/MM3 (1.8-7.7); BASOPHIL % 1.3 % (0.0-2.0); HEMATOCRIT 40.7 % (39.0-51.0); HEMOGLOBIN 13.8 GM/DL (13.0-17.0); LYMPH % 11.3 % (9.0-44.0); LYMPHOCYTE # 0.4 TH/MM3 (1.0-4.8); MEAN CELL VOLUME 90.5 FL (80.0-100.0); MEAN CORPUSCULAR HEMOGLOBIN 30.7 PG (27.0-34.0); MEAN CORPUSCULAR HGB CONC 33.9 % (32.0-36.0); MEAN PLATELET VOLUME 7.1 FL (7.0-11.0); MONO % 5.5 % (0.0-8.0); MONOCYTE # 0.2 TH/MM3 (0-0.9); NEUT % 81.9 % (16.0-70.0); PLATELET COUNT 191 TH/MM3 (150-450); RED BLOOD COUNT 4.49 MIL/MM3 (4.50-5.90); RED CELL DISTRIBUTION WIDTH 12.1 % (11.6-17.2); WHITE BLOOD COUNT 3.2 TH/MM3 (4.0-11.0)
[2017-09-25 10:47] LABS: BILIRUBIN, URINE NEG (NEG); BLOOD, URINE NEG (NEG); GLUCOSE,URINE NEG (NEG); KETONE, URINE NEG (NEG); NITRITE,URINE NEG (NEG); URINE COLOR YELLOW (YELLW/STRAW); URINE LEUKOCYTE ESTERASE NEG (NEG)
--- NOTE | 2017-09-25 10:52 | RADRPT ---
EXAM DATE/TIME: 09/25/2017 10:28 Michael Miles MD FACR on September 25, 2017 at 10:50 Board Certified Radiologist. This report was verified electronically.
[2017-09-25 10:57] LABS: CALCIUM 8.5 MG/DL (8.5-10.1)
[2017-09-25 10:58] LABS: BICARBONATE 26.3 MEQ/L (21.0-32.0)
[2017-09-25 11:01] LABS: CREATININE 1.2 MG/DL (0.60-1.30)
[2017-09-25 11:06] LABS: MUCUS URINE RARE /lpf (OCC); SQUAMOUS EPITHELIAL CELL URINE 0-1 /hpf (0-5); WBC, URINE 0-2 /hpf (0-5)
== END 2017-09-25 12:01 | disposition home or self-care (01) ==
LOC: PHED 09:10
DX: M79.1 Myalgia (principal); R50.9 Fever, unspecified; I48.91 Unspecified atrial fibrillation; K21.9 Gastro-esophageal reflux disease without esophagitis; Z88.0 Allergy status to penicillin
CPT/HCPCS: 71045; 80048; 81001; 85025; 87804; 99284